=== PATIENT | male | born 1950 | race Caucasian/White ===

== ENCOUNTER 2023-06-08 13:36 | Outpatient (REF) | payer MEDICARE, SELFPAY ==
[2023-06-08 14:39] LABS: Adenovirus NOT DETECTED (NOT DETECTE); Bordetella parapertussis NOT DETECTED (NOT DETECTE); Coronavirus 229E NOT DETECTED (NOT DETECTE); Coronavirus HKU1 NOT DETECTED (NOT DETECTE); Coronavirus NL63 NOT DETECTED (NOT DETECTE); Coronavirus OC43 NOT DETECTED (NOT DETECTE); Human Metapneumovirus NOT DETECTED (NOT DETECTE); Human Rhinovirus/Enterovirus NOT DETECTED (NOT DETECTE); Influenza A NOT DETECTED (NOT DETECTE); Influenza B NOT DETECTED (NOT DETECTE); Mycoplasma pneumoniae NOT DETECTED (NOT DETECTE); Parainfluenza Virus 1 NOT DETECTED (NOT DETECTE); Parainfluenza Virus 2 NOT DETECTED (NOT DETECTE); Parainfluenza Virus 3 NOT DETECTED (NOT DETECTE); Parainfluenza Virus 4 NOT DETECTED (NOT DETECTE); Respiratory Syncytial Virus NOT DETECTED (NOT DETECTE); SARS-CoV-2 NOT DETECTED (NOT DETECTE)
== END 2023-06-08 13:37 | disposition home or self-care (01) ==
LOC: LAB 13:36
PROVIDERS: PCP Family Medicine; Visit Provider Family Medicine
DX: R05.9 Cough, unspecified (principal)
CPT/HCPCS: 0202U

== ENCOUNTER 2023-08-27 09:13 | Outpatient (OUT) | payer MEDICARE, OTHER, SELFPAY ==
--- NOTE | 2023-08-27 09:32 | CT_ITS ---
[address] [address] Patient Name: RACIEL MARTEL MRN: [id number] date: 1950 Sex: M Assigned Patient Location: CT Current Patient Location: CT Accession/Order Number: [id number] Exam Date: 08/27/2023 09:37 Report Date: 08/27/2023 10:08 At the request of: MIKE GOMEZ Procedure: CT lung screening low-dose EXAMINATION: CT lung screening low-dose HISTORY: Nicotine Dependence Cigarettes F17.210 COMPARISON: No relevant comparison available. TECHNIQUE: Axial, Coronal, and Sagittal images were created without the administration of IV contrast material. Dose reduction techniques were achieved by using automated exposure control and/or adjustment of mA and/or kV according to patient size and/or use of iterative reconstruction technique. FINDINGS: LUNGS: No visible pulmonary disease. PLEURA: No mass, effusion, or pneumothorax. VASCULATURE: No abnormality. BETH: No mass or pathologic adenopathy. MEDIASTINUM: No mass or pathologic adenopathy. CARDIAC: No enlargement, pericardial thickening, or pericardial effusion. AORTA: No aneurysm or dissection. CHEST WALL: No mass or axillary adenopathy BONES: No bone lesion or fracture. LIMITED ABDOMEN: No suspicious findings. Limited images of the upper abdomen. OTHER: Negative. CT/CT lung screening low-dose IMPRESSION: 1. Lung-RADS Category 1 Negative. No nodules and definitely benign nodules. Continue annual screening with LDCT in 12 months. Electronically authenticated by: WYATT CARY Date: 08/27/2023 10:08
== END 2023-08-27 09:14 | disposition home or self-care (01) ==
LOC: CT 09:15
PROVIDERS: PCP Family Medicine; Visit Provider Family Medicine
DX: F17.210 Nicotine dependence, cigarettes, uncomplicated (principal); Z12.2 Encounter for screening for malignant neoplasm of respiratory organs
CPT/HCPCS: 71271

== ENCOUNTER 2025-07-17 13:01 | Day surgery (SDC) | payer MEDICARE, OTHER, SELFPAY ==
--- OUTSIDE RECORDS SUMMARY | 2025-07-17 13:04 | XMS_ITS | Clinical Summary ---
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 Name Role Phone Bruno Pratt MD Primary Care Provider [phone] Bruno Pratt MD Unavailable Allergies No known active allergies Medications MedicationSigDispense QuantityRefillsLast FilledStart DateEnd DateStatus albuterol HFA 90 mcg/act inhaler Indications:Simple chronic bronchitis (HCC)Inhale 2 puffs every 4 (four) hours if needed for wheezing 18 g 5Active Active Problems ProblemNoted DateDiagnosed DateScreening for lipid ngcmsumhe68/06/2025 Assessment & Plan (04/30/2025 1:58 PM EDT): Atorvastatin was ordered but he is noncompliant Simple chronic trbjtpymag49/06/2025 Assessment & Plan (04/30/2025 2:06 PM EDT): Cessation advised Consider Inhaler Medicare annual wellness visit, /29/2024 Assessment & Plan (04/30/2025 1:57 PM EDT): Colonoscopy every 10 years or Cologuard every 3 years ages 50-75 Flu Vaccine yearly Pneumovax and Prevnar Mammo yearly for women and PSA yearly for men Labs/Screening yearly to rule out Diabetes, Chronic Kidney disease and liver disease Hepatitis Screen forat risk populations Shingles vaccine after65 if indicated Tetanus Vaccine every 10 years Lipids yearly under the age of 75 If Smoking history: one time CT scan of chest and Ultrasound of Aorta to screen for Anuerysm Assessment & Plan (08/23/2023 11:39 AM EST): Colonoscopy every 10 years or Cologuard every 3 years ages 50-75 Flu Vaccine yearly Pneumovax and Prevnar Mammo yearly for women and PSA yearly for men Labs/Screening yearly to rule out Diabetes, Chronic Kidney disease and liver disease Hepatitis Screen forat risk populations Shingles vaccine after65 if indicated Tetanus Vaccine every 10 years Lipids yearly under the age of 75 If Smoking history: one time CT scan of chest and Ultrasound of Aorta to screen for Anuerysm Benign essential vifdtkobbmex05/29/2024 Assessment & Plan (08/23/2023 11:40 AM EST): Our specific goals, for your hypertension, is to keep your blood pressure less than 140/90, and theimportance of weight control. We made recommendations on how to control your blood pressure, and minimize your risk of these copmplications. We also discussed your current barriers to a healthy living and importance of healthy diet and exercise. Prior to your visit today we have reviewed your chart and formed a plan to assist with providing you the best possible care. We reviewed the possible complications of hypertension including, stroke, heart failure and kidney impairment. In addition, we discussed your medications, the importance of taking them as prescribed. DASH diet handouts Elevated PSA08/23/2023 Assessment & Plan (04/30/2025 1:56 PM EDT): Will repeat, but probably needs to see urologist if continues to be elevated for further workup Assessment & Plan (08/23/2023 11:42 AM EST): Will repeat labs He did not want to go last time He is agreeable to see specialist Acute exacerbation of chronic obstructive pulmonary ebuocec1808/19/2023cute right-sided low back pain with right-sided /25/2024rthritis of spine 08/19/2023Mass of parotid gland08/19/2023 Assessment & Plan (08/23/2023 11:50 AM EST): Has seen Dr. Florence in the past and Dr. Florence wanted to remove. But found a lot of nerve involvement. It has grown. Needs referral back to ENT Other chronic pain08/19/2023rimary osteoarthritis of right knee08/19/2023Smoker 08/19/2023 Assessment & Plan (04/30/2025 1:57 PM EDT): CT scan ordered for Lung Cancer screen Discussed smoking cessation with the patient. Encouraged patient to try to cut back gradually and soon quit smoking. Discussed ways to quit smoking including gum, patches, medication, and gradually reducing the number of cigarettes smoked daily. Discussed potential health risks of fci smoking. Patient voiced understanding. Benefits of cessation, both health and financial, were reviewed. Assessment & Plan (08/23/2023 11:38 AM EST): Discussed smoking cessation with the patient. Encouraged patient to try to cut back gradually and soon quit smoking. Discussed ways to quit smoking including gum, patches, medication, and gradually reducing the number of cigarettes smoked daily. Discussed potential health risks of fci smoking. Patient voiced understanding. Benefits of cessation, both health and financial, were reviewed. Deaf-sxbifn3101/22/2009 Encounters DateTypeDepartmentCare RajeSypcadwjrmy22/21/2025bstract [facility] [place] [facility] [address] [facility] [address] [place] [address] Bruno Pratt MD 05/03/2025Results Follow-Up [facility] [place] [address] [facility] [address] [place] [address] Bruno Pratt MD CBC and differential, Comprehensive metabolic panel, Lipid panel, PSA05/01/2025 Abstract [facility] [place] [facility] [address] [facility] [address] [place] [address] Bruno Pratt MD 05/01/2025bstract [facility] [place] [facility] [address] [facility] [address] [place] [address] Bruno Pratt MD 04/30/2025 1:30 PM EDTOffice Visit [facility] [place] [facility] [address] [facility] [address] [place] [address] Bruno Pratt MD Simple chronic bronchitis (HCC) (Primary Dx); Nocturia; Screen for colon cancer; Smoker; Medicare annual wellness visit, subsequent; Elevated PSA; Screening for lipid ngvhurbkw17/06/2025amboo flowsheet [facility] [place] [facility] [address] [facility] [address] [place] [address] Bruno Pratt MD 04/30/2025Travelfrom Last 3 Months Immunizations ImmunizationAdministration DatesNext DuePfizer Purple Cap SARS-CoV-2 Vaccination 10/23/20204589YRGJ-OWP-7 (COVID-19) vaccine, mRNA, spike protein, LNP, bivalent, preservative free, 30 mcg/0.3 mLdose, robert-sucrose glyyukthvpx28/04/2022 Family History Medical HistoryRelationNameCommentsProstate cancerFatherRelationNameStatus CommentsFatherMotherAlive Social History Tobacco UseTypesPacks/DayYears UsedDateSmoking Tobacco: Every DayCigarettes Tobacco Cessation:Ready to Q uit: No; Counseling Given: Not Answered Comments:Starts smoking 5 minutes after waking up; Smokes 6-10 cigarettes a day Alcohol UseStandard Drinks/WeekCommentsNever0 (1 standard drink = 0.6 oz pure alcohol)Caffeine Intake: 1-2 cups per day coffee/sodaPHQ-2AnswerDate Recorded Patient Health Questionnaire-2 Owpwh746Sex and Gender InformationValue Date RecordedSex Assigned at BirthNot on fileLegal VoyOliq1010/07/2022 7:15 PM EDT Gender IdentityNot on fileSexual OrientationNot on file Last Filed Vital Signs Vital SignReadingTime TakenCommentsBlood Jmvdypte837/7210 1:45 PM EDT Aykmp776904/30/2025 1:45 PM EDTTemperature--Respiratory Rate--Oxygen Ywxhprnxcp35% 04/30/2025 1:45 PM EDTInhaled Oxygen Concentration--Idflwa51.9 kg (143 lb) 04/30/2025 1:45 PM MILGmessr977.5 cm (5' 2 )04/30/2025 1:45 PM EDTBody Mass Index26.161 1:45 PM EDT Plan of Treatment Health MaintenanceDue DateLast DoneCommentsCT Tvlmscrxjdtc76/03/1951FIT-DNA 1950FIT1950FOBT1950 9034Hephnogkddcqc96/03/1951neumococcal Vaccine: 65+ Years (1 of 2 - PCV)12/26/19690382Ihbwdujvwzl61/08/202304/02/2013 Colorectal Cancer Kmkewwvoj43/08/2023Influenza Vaccine (#1)2025Medicare Annual Wellness (AWV), 08/23/2024, 08/23/2023 Procedures Procedure NamePriorityDate/TimeAssociated DiagnosisCommentsPSA, TOTALRoutine 05/02/2025 8:43 AM EDT Nocturia LIPID GJZTSIympzom64/08/2025 8:43 AM EDT Medicare annual wellness visit, subsequent Screening for lipid disorders COMPREHENSIVE METABOLIC RLXXAMtbengr67/08/2025 8:43 AM EDT Nocturia Medicare annual wellness visit, subsequent Elevated PSA CBC (INCLUDES DIFF/PLT)Nrtyeen9205/02/2025 8:43 AM EDT Nocturia Medicare annual wellness visit, subsequent Elevated PSA TRIAATXBJKXIqvvbci54/08/2013 12:00 PM EDT from Last 3 Months or Most Recently Relevant to Health Maintenance Results * (ABNORMAL) CBC and differential (05/02/2025 8:43 AM EDT)ComponentValueRef RangeTest MethodAnalysis TimePerformed AtPathologist SignatureWHITE BLOOD CELL COUNT15.1(H)3.8 - 10.8 Thousand/uLQUESTRED BLOOD CELL COUNT4.254.20 - 5.80 Million/zRZKHIZCNGNBGDNBA02.813.2 - 17.1 g/kEQYJIDPEYLPMUHXD28.438.5 - 50.0 % PVXCBGWF02.880.0 - 100.0 cCMJCBHTCX73.527.0 - 33.0 cvAXZICIHJF04.532.0 - 36.0 g/dLQUESTComment: For adults, a slight decrease in the calculated MCHC value (in the range of 30 to 32 g/dL) is most likely not clinically significant; however, it should be interpreted with caution in correlation with other red cell parameters and the patient's clinical condition. RDW12.011.0 - 15.0 %QUESTPLATELET HMKDL031693 - 400 Thousand/pKAQONBIZV08.67.5 - 12.5 fLQUESTABSOLUTE VWSDSTQBRNC46,307(H)1,500 - 7,800 cells/uLQUESTABSOLUTE LYMPHOCYTES1,954492 - 3,900 cells/uLQUESTABSOLUTE MONOCYTES1,193(H)200 - 950 cells/uLQUESTABSOLUTE VXMGBEEVLEK98109 - 500 cells/uLQUESTABSOLUTE SHPLXPPOP352 - 200 cells/vPAGROJYUSAGCVQNXM93.5%QUESTLYMPHOCYTES9.4%QUESTMONOCYTES7.9%QUEST EOSINOPHILS0.7%QUESTBASOPHILS0.5%QUESTSpecimen (Source)Anatomical Location / LateralityCollection Method / VolumeCollection TimeReceived TimeBloodVenous blood specimen / Sklnkgj8905/02/2025 8:43 AM EDT1 8:45 AM EDT Narrative [facility] - 05/03/2025 7:09 AM EDT FASTING:YES FASTING: YES Resulting Agency Comment Performing Organization Information ?Site ID: QPT ?Name: [employer] [facility] ?Address: [address] [place] [phone] ?Director: Braeden Castaneda MD Authorizing ProviderResult TypeResult StatusBruno Pratt MDLAB BLOOD ORDERABLES Final ResultPerforming OrganizationAddressCity/State/ZIP CodePhone Number [facility] * (ABNORMAL) PSA (05/02/2025 8:43 AM EDT)ComponentValueRef RangeTest Method Analysis TimePerformed AtPathologist SignaturePSA, TOTAL6.27(H)< OR = 4.00 ng/mLQUESTComment: The total PSA value from this assay system is standardized against the WHO standard. The test result will be approximately 20% lower when compared to the equimolar-standardized total PSA (Alfred Luke). Comparison of serial PSA results should be interpreted with this fact in mind. This test was performed using the Siemens chemiluminescent method. Values obtained from different assay methods cannot be used interchangeably. PSA levels, regardless of value, should not be interpreted as absolute evidence of the presence or absence of disease. Specimen (Source)Anatomical Location / LateralityCollection Method / Volume Collection TimeReceived TimeBloodVenous blood specimen / Ictjyof4505/02/2025 8:43 AM EDT1 8:45 AM EDT Narrative [facility] - 05/03/2025 7:09 AM EDT FASTING:YES FASTING: YES Resulting Agency Comment Performing Organization Information ?Site ID: QPT ?Name: [employer] [address] [facility] ?Address: [address] [place] [address], [address] [place] [phone] ?Director: Braeden Castaneda MD Authorizing ProviderResult TypeResult StatusBruno Pratt MDLAB BLOOD ORDERABLES Final ResultPerforming OrganizationAddressCity/State/ZIP CodePhone Number [facility] * (ABNORMAL) Lipid panel (05/02/2025 8:43 AM EDT)ComponentValueRef RangeTest MethodAnalysis TimePerformed AtPathologist SignatureCHOLESTEROL, EGCIS255<200 mg/dLQUESTHDL NWEMOACWUPI05> OR = 40 mg/pWALMHOYBVBKUUIFKBDI93<150 mg/dLQUEST LDL RTVWGEFOQHX423(H)mg/dL (calc)QUESTComment: Reference range: <100 Desirable range <100 mg/dL for primary prevention; <70 mg/dL for patients with CHD or diabetic patients with > or = 2 CHD risk factors. LDL-C is now calculated using the Patricio-Phuc calculation, which is a validated novel method providing better accuracy than the Friedewald equation in the estimation of LDL-C. Patricio PEDERSON et al. LUZ. 2013;310(19): 2048-3156 (http://education.mAPPn.InfoRemate/faq/HMF226) CHOL/HDLC RATIO3.3<5.0 (calc)QUESTNON HDL VVITRJYZTBK649<130 mg/dL (calc)QUEST Comment: For patients with diabetes plus 1 major ASCVD risk factor, treating to a non-HDL-C goal of <100 mg/dL (LDL-C of <70 mg/dL) is considered a therapeutic option. Specimen (Source)Anatomical Location / LateralityCollection Method / Volume Collection TimeReceived TimeBloodVenous blood specimen / Beqrgac3105/02/2025 8:43 AM EDT1 8:45 AM EDT Narrative [facility] - 05/03/2025 7:09 AM EDT FASTING:YES FASTING: YES Resulting Agency Comment Performing Organization Information ?Site ID: QPT ?Name: [facility] ?Address: [address] [place] [address], [address] [place] [phone] ?Director: Braeden Castaneda MD Authorizing ProviderResult TypeResult StatusBruno Pratt MDLAB BLOOD ORDERABLES Final ResultPerforming OrganizationAddressCity/State/ZIP CodePhone Number [facility] * (ABNORMAL) Comprehensive metabolic panel (05/02/2025 8:43 AM EDT)Component ValueRef RangeTest MethodAnalysis TimePerformed AtPathologist SignatureGlucose 100(H)65 - 99 mg/dLQUESTComment: ? Fasting reference interval For someone without known diabetes, a glucose value between 100 and 125 mg/dL is consistent with prediabetes and should be confirmed with a follow-up test. NHX098 - 25 mg/dLQUESTCreatinine0.800.70 - 1.28 mg/sVYUCCGNBYG91> OR = 60 mL/min/1.80o2VOXIZXVH/CREATININE RATIOSEE NOTE:6 - (calc)QUESTComment: ?? Not Reported: BUN and Creatinine are within ?? reference range. ? Tnwulp721499 - 146 mmol/LQUESTPotassium, Bld4.03.5 - 5.3 mmol/FPTFZGIffixrpg846 98 - 110 mmol/LQUESTCarbon Abtounl3479 - 32 mmol/LQUESTCalcium9.48.6 - 10.3 mg/dLQUESTPROTEIN, TOTAL6.56.1 - 8.1 g/dLQUESTALBUMIN3.93.6 - 5.1 g/dLQUEST GLOBULIN2.61.9 - 3.7 g/dL (calc)QUESTALBUMIN/GLOBULIN RATIO1.51.0 - 2.5 (calc) QUESTBILIRUBIN, TOTAL0.40.2 - 1.2 mg/dLQUESTALKALINE RLLPDDXMHKC6991 - 144 U/L PHCYYFCG9380 - 35 U/UBLVTKYMD279 - 46 U/LQUESTSpecimen (Source)Anatomical Location / LateralityCollection Method / VolumeCollection TimeReceived TimeBlood Venous blood specimen / Siwtyvx7705/02/2025 8:43 AM EDT1 8:45 AM EDT Narrative [facility] - 05/03/2025 7:09 AM EDT FASTING:YES FASTING: YES Resulting Agency Comment Performing Organization Information ?Site ID: QPT ?Name: [facility] ?Address: [address] [place] [address], [address] [place] [phone] ?Director: Braeden Castaneda MD Authorizing ProviderResult TypeResult StatusBruno Pratt MDLAB BLOOD ORDERABLES Final ResultPerforming OrganizationAddressCity/State/ZIP CodePhone Number [facility] * Colonoscopy (10/31/2012 12:00 PM EDT)Anatomical RegionLateralityModality EndoscopySpecimen (Source)Anatomical Location / LateralityCollection Method / VolumeCollection TimeReceived Time10/31/2012 12:00 PM EDT Narrative 10/31/2012 12:00 PM EDT PERFORMED AT [facility] LOCATION:[id number] Normal Procedure Note CONVERSION, GENERIC - 12/10/2022 PERFORMED AT [facility] LOCATION:[id number] Normal Authorizing ProviderResult TypeResult StatusBruno Pratt MDENDOSCOPY PROCEDURE ORDERABLESFinal Result from Last 3 Months or Most Recently Relevant to Health Maintenance Insurance Care Teams Team MemberRelationshipSpecialtyStart DateEnd Date Bruno Pratt MD [address] [facility] [address] [place] [address] PCP - [facility]12/01/22 Bruno Pratt MD [address] [facility] [address] [place] [address] PCP - [facility]11/24/23
--- OUTSIDE RECORDS SUMMARY | 2025-07-17 13:04 | XMS_ITS | Clinical Summary ---
Author Organization [facility] Address [address] [place], [place] [address] Care Team Providers Care Charge Poster Name Role Phone Bruno Pratt MD Primary Care Provider [phone] Allergies No known active allergies Medications MedicationSigDispense QuantityRefillsLast FilledStart DateEnd DateStatus acetaminophen(TYLENOL EXTRA STRENGTH 500 MG TAB) Take two(2) tablets every four(4) to six(6) hours as needed.ctive Active Problems ProblemNoted DateDiagnosed DateKnee cwooeagcyuz81/07/2010Difficulty in walking(719.7)10/10/2009OA (osteoarthritis) of knee06/09/2009 Social History Tobacco UseTypesPacks/DayYears UsedDateSmoking Tobacco: Every FubSdugourotu241 Alcohol UseStandard Drinks/WeekCommentsNo0 (1 standard drink = 0.6 oz pure alcohol)Sex and Gender InformationValueDate RecordedSex Assigned at BirthNot on fileLegal ZcyVqgk80/02/2012 10:05 AM ESTGender IdentityNot on fileSexual OrientationNot on file Last Filed Vital Signs Vital SignReadingTime TakenCommentsBlood Bnyklazc384/7503 9:00 AM EDT Flavx8439 9:00 AM KSUUgpyovlzeos81.3 ??C (97.3 ??F)10/11/2009 9:00 AM EDTRespiratory Ywbs0050 2:30 AM EDTOxygen Vndczwwbdg82%10/11/2009 9:00 AM EDTInhaled Oxygen Concentration--Bezrso40 kg (150 lb)10/10/2009 9:23 AM EDT Wtogas721 cm (5' 3 )10/09/2009 1:28 PM EDTBody Mass Index26.5703 1:28 PM EDT Plan of Treatment Health MaintenanceDue DateLast DoneCommentsAbdominal Aortic Aneurysm Screening 1Anxiety Kxfsljlaa53/03/1969Depression Kjzhsjtax79/03/1969Hepatitis C Jgiqezbjp47/03/1969DTaP,Tdap,Td Vaccine (1 - Tdap)1969Lipid Screening 1985CT Hdlmzsfpxdls44/03/1996Cologuard (FIT-DNA)12/27/1995Colonoscopy 12/27/1995Colorectal Cancer Fbuyccbrb17/03/1996Fecal Occult Blood12/27/1995 Omzbnbpavoehc30/03/1996Pneumococcal Vaccine: 50+ (1 of 1 - PCV)2000 Shingrix Vaccine (1 of 2)2000Diabetes Eklverxoa10dvance Directive Rjibdkdbbs30/01/2025ovid-19 Vaccine (1 - 2024- season)2025 Influenza Vaccine (#1)2025RSV Vaccine (1 - 1-dose 75+ series)2025 Medical Devices ImplantedTypeAreaManufacturerDevice IdentifierShelf Expiration DateModel / Serial / LotCobalt Hv Bone Cement 40grams - [id number] Implanted:Qty: 1 [facility]10/[facility] [id number] / / [id number]-Dy-P-Doev Implant - [id number] Implanted:Qty: 1 on 10/10/2009 [id number] / / [id number]:oxford partial knee system left medial tibial trayKnee Fem Comp Repl Phillips - [id number] Implanted:Qty: 1 on 10/10/2009 at [facility] - [id number] / / [id number] Tibial Phillips Med Left 3mm Thickness - [id number] Implanted:Qty: 1 on 10/10/2009 at [facility] - KneeLeft: Bone - Knee IHZECH0012/24/[id number] / / [id number] Procedures Procedure NamePriorityDate/TimeAssociated DiagnosisCommentsBASIC METABOLIC PANEL Yeyflbi7509/06/2009 10:10 AM EST OA (Osteoarthritis) of Knee from Last 3 Months or Most Recently Relevant to Health Maintenance Results * (ABNORMAL) BASIC METABOLIC PNL (09/06/2009 10:10 AM EST)ComponentValueRef RangeTest MethodAnalysis TimePerformed AtPathologist LaqkdcjdhCojrdeq670(H)65 - 100 mg/dLBLUFFTON HOSPITAL DHRDSMTYGXUPQ1039 - 25 mg/dLBLUFFTON HOSPITAL LABORATORYCreatinine0.850.70 - 1.40 mg/dLBLUFFTON HOSPITAL LABORATORY Jqlxkj848132 - 146 mmol/LCPARKVIEW HEALTH LABORATORYPotassium4.83.5 - 5.0 mmol/LCPARKVIEW HEALTH FONBRLPHPEEokflwob19683 - 110 mmol/LCPARKVIEW HEALTH EGQCZUCUFYUT47006 - 32 mmol/LCPARKVIEW HEALTH LABORATORYAnion Gap90 - 15 mmol/LCPARKVIEW HEALTH LABORATORYCalcium9.78.5 - 10.5 mg/dL [facility] LABORATORYeGFR->60[facility] LABORATORYeGFR-All Other Races>60.[facility] LABORATORYComment: eGFR (Estimated GFR) Units of measure: mL/min/1.73 meters squared eGFR is derived from the reexpressed MDRD Study equation using the following parameters: serum creatinine, age, gender and race. The creatinine assay has been calibrated to be traceable to IDMS. An eGFR <60 mL/min/1.73m2 for >3 months is consistent with chronic kidney disease. Refer to KDOQI guidelines for clinical interpretation. Specimen (Source)Anatomical Location / LateralityCollection Method / Volume Collection TimeReceived TimeBlood specimen (specimen)BLOOD SPECIMEN / Unknown 09/06/2009 10:10 AM EST Narrative Authorizing ProviderResult TypeResult StatusCandace Beury PA-CLABORATORYFinal ResultPerforming OrganizationAddressCity/State/ZIP CodePhone Number [facility] [address] [place] [address] from Last 3 Months or Most Recently Relevant to Health Maintenance Insurance * Guarantor: Apollo Mckeon TypeRelation to PatientDate of BirthPhone Billing AddressSelf [id number] 1950 [address] [place] [address] Care Teams Team MemberRelationshipSpecialtyStart DateEnd Date Bruno Pratt MD [address] [facility] [address] [place] [address] PCP - Qqxhoty15/28/04
[2025-07-17 14:08] VITALS: BP 150/76; PULSE 58; TEMP 36.3; O2SAT 98
[2025-07-17] MEDS: GENTAMICIN SULFATE 80 MG/2 ML VIAL 120 MG IM (15:12)
--- NOTE | 2025-07-17 16:47 | PC.NURSE ---
VITAL PRE-116/69 60 20 95% POST 109/85 68 20 98
[2025-07-17] MEDS: LIDOCAINE 2% JELLY 10 ML UR (16:51)
[2025-07-17] MEDS: LIDOCAINE HCL 1% 100 MG/10 ML MDV INJ (16:52)
--- NOTE | 2025-07-17 17:20 | PM.URSON ---
Urology Surgery Operative Note Operative Note Procedure Date: 07/17/25 Time Out Performed: yes Pre-op Diagnosis: Elevated PSA Post-op Diagnosis: same as pre-op Procedures performed: 1. Trans perineal prostate biopsies Anesthesia: local Primary Surgeon: Caio Mckeon Complications: None Estimated blood loss (mL): 5 Findings: No hypoechoic areas Specimens: Mapped out biopsies according to precision point routine Drains: None Indications for Procedures: This gentleman has an elevated PSA of 6.2 and a negative BIPIN. His prostate MRI found no evidence of any concerning areas. He now presents for transperineal prostate biopsies. He has signed an informed consent after risks were explained. Some of these include bleeding, infection, urosepsis and anesthesia to name a few. Detailed description of Procedure: The patient was kept on the gurfox lake bed and brought into the operating room. He was placed in the modified dorsal lithotomy position. All pressure points were satisfactorily padded. Perineum was sterilely prepped and draped in the usual fashion. Timeout was done by all parties in the room. 2% lidocaine gel was passed per rectum. The ultrasound probe from the UroNav machine was passed per rectum. I then used 1% plain lidocaine and infiltrated locally in the skin and then deeply over the sites of precision point introducer penetration. A block in the prostate was done to the apex in the usual manner with a spinal needle. The precision point device was then adhered to the ultrasound probe and the introducer was then passed through the perineum. The prostate gun was then passed through the introducer and we started posteriorly. We did the standard mapped out biopsies 6 from the right side and 6 from the left side posteriorly. We also did 4 from the right side anteriorly and 4 from the left side anteriorly. Upon completion we had 20 satisfactory cores. The probe was removed. He was then discharged to home.
== END 2025-07-17 17:50 | disposition home or self-care (01) ==
LOC: SURGOUT 13:01
PROVIDERS: PCP Family Medicine; Visit Provider Urology
PROC: (CPT 55700; principal; 2025-07-17 13:30)
DX: R97.20 Elevated prostate specific antigen [PSA] (principal); N42.31 Prostatic intraepithelial neoplasia; I10 Essential (primary) hypertension; M19.90 Unspecified osteoarthritis, unspecified site; F17.200 Nicotine dependence, unspecified, uncomplicated; H91.90 Unspecified hearing loss, unspecified ear
CPT/HCPCS: 55700; J1580